=== PATIENT | female | born 1970 | race Caucasian/White ===

== ENCOUNTER 2024-12-10 13:23 | Inpatient (IN) | payer OTHER ==
[~2024-12-10] VITALS: Ht 165.1 cm; Wt 90.7 kg
[2024-12-10] MEDS: SODIUM CHLORIDE 0.9% 1000ML 1,000 ML IV STA (14:24)
[2024-12-10 14:32] LABS: BASOPHILS % 0.6 % (0.0-1.0); EOSINOPHILS # (AUTO) 0.2 (0.0-0.4); EOSINOPHILS % 2.8 % (0.0-6.0); HEMOGLOBIN 10.5 g/dL (12.0-16.0); LYMPHOCYTES # (AUTO) 1.4 (1.0-3.2); LYMPHOCYTES % 20.6 % (18.0-39.1); MEAN CORPUSCULAR HEMOGLOBIN 28.8 pg (28-32); MEAN CORPUSCULAR HGB CONC 31.8 g/dL (31-35); MEAN CORPUSCULAR VOLUME 90.7 fL (81-99); MONOCYTES # (AUTO) 0.4 (0.2-0.8); MONOCYTES % 5.6 % (4.4-11.3); NEUTROPHILS # (AUTO) 4.8 (2.1-6.9); NEUTROPHILS % 70.3 % (38.7-80.0); PLATELET COUNT 359 x10e3/uL (140-360); RED BLOOD COUNT 3.64 x10e6/uL (3.6-5.1); RED CELL DISTRIBUTION WIDTH 13.7 % (11.7-14.4); WHITE BLOOD COUNT 6.83 x10e3/uL (4.8-10.8)
[2024-12-10] MEDS: VANCOMYCIN 1.25GM/250 ML (PEG) 250 ML IV ONE (14:42)
[2024-12-10 14:44] LABS: INR 0.9
[2024-12-10 14:45] LABS: PARTIAL THROMBOPLASTIN TIME 30.6 seconds (23.8-35.5)
[2024-12-10 14:54] LABS: ALBUMIN 3.1 g/dL (3.5-5.0); ALBUMIN/GLOBULIN RATIO 0.8 (0.8-2.0); ANION GAP 14.4 mmol/L (8-16); BILIRUBIN,TOTAL 0.4 mg/dL (0.2-1.2); CALCIUM 9.1 mg/dL (8.4-10.2); CREATININE, SERUM 0.97 mg/dL (0.57-1.11); MAGNESIUM 2.1 MG/DL (1.3-2.1); POTASSIUM 4.4 mmol/L (3.5-5.1)
[2024-12-10 16:12] VITALS: PULSE 76; RESP 16; TEMP 98.5
[2024-12-10 16:55] VITALS: BP 152/85; PULSE 85; RESP 18; TEMP 98.3; O2SAT 100
[2024-12-10 17:10] VITALS: BP 152/85; PULSE 85; RESP 18; TEMP 98.3; O2SAT 100
[2024-12-10] MEDS ORDERED: SUBOXONE 8 MG-1 EAC2 SL (17:31)
[2024-12-10] MEDS: ENOXAPARIN SODIUM INJ 100 MG/ML SYR SC ONE (17:38)
[2024-12-10] MEDS: SODIUM CHLORIDE 0.9% 1000ML 1,000 ML IV SCH (17:39)
[2024-12-10 20:00] VITALS: BP 143/73; PULSE 49; RESP 20; TEMP 98.3; O2SAT 98
[2024-12-10 21:00] VITALS: BP 143/73; PULSE 49; RESP 20; TEMP 98.3; O2SAT 98
[2024-12-11] VITALS (7 sets, daily range): BP systolic 123–141; BP diastolic 69–73; PULSE 63–79; RESP 17–20; TEMP 97.9–98.4; O2SAT 96–99
[2024-12-11] MEDS: Vancomycin IV 1 GM in SODIUM CHLORIDE 0.9% 250ML 250 ML IV SCH (03:54)
[2024-12-11] MEDS: ONDANSETRON HCL INJ 2MG/ML 2ML 2 MG/ML VIAL IV PRN (05:09)
[2024-12-11] MEDS: Morphine 4mg INJECTION 4 MG/ML INJ IV PRN (05:09)
[2024-12-11 05:54] LABS: BASOPHILS # (AUTO) 0.1 (0.0-0.1); BASOPHILS % 0.9 % (0.0-1.0); EOSINOPHILS # (AUTO) 0.2 (0.0-0.4); EOSINOPHILS % 4.1 % (0.0-6.0); HEMATOCRIT 31.9 % (34.2-44.1); HEMOGLOBIN 10.1 g/dL (12.0-16.0); LYMPHOCYTES # (AUTO) 1.7 (1.0-3.2); LYMPHOCYTES % 29.9 % (18.0-39.1); MEAN CORPUSCULAR HEMOGLOBIN 28.9 pg (28-32); MEAN CORPUSCULAR HGB CONC 31.7 g/dL (31-35); MEAN CORPUSCULAR VOLUME 91.1 fL (81-99); MONOCYTES # (AUTO) 0.4 (0.2-0.8); MONOCYTES % 6.6 % (4.4-11.3); NEUTROPHILS # (AUTO) 3.3 (2.1-6.9); NEUTROPHILS % 58.3 % (38.7-80.0); PLATELET COUNT 350 x10e3/uL (140-360); RED CELL DISTRIBUTION WIDTH 13.9 % (11.7-14.4); WHITE BLOOD COUNT 5.62 x10e3/uL (4.8-10.8)
[2024-12-11 06:40] LABS: ALBUMIN 2.6 g/dL (3.5-5.0); ALBUMIN/GLOBULIN RATIO 0.7 (0.8-2.0); ANION GAP 13.4 mmol/L (8-16); BILIRUBIN,TOTAL 0.5 mg/dL (0.2-1.2); CALCIUM 8.6 mg/dL (8.4-10.2); CREATININE, SERUM 0.94 mg/dL (0.57-1.11); POTASSIUM 4.4 mmol/L (3.5-5.1); TOTAL PROTEIN 6.1 g/dL (6.5-8.1)
[2024-12-11] MEDS: FUROSEMIDE INJ 10 MG/ML 4 ML VIAL IV SCH (09:53)
[2024-12-11] MEDS: POTASSIUM CHLORIDE 10MEQ EA PO SCH (09:54)
[2024-12-11] MEDS: [UNRECOGNIZED DRUG - OTHER] SL SCH (17:00)
[2024-12-11] MEDS: NALOXONE HCL SL SCH (17:00)
[2024-12-11] MEDS: BUPRENORPHINE HCL SL SCH (17:00)
[2024-12-11] MEDS: ENOXAPARIN SOD INJ 40 MG/0.4 ML SYR SC SCH (17:16)
[2024-12-12] VITALS (9 sets, daily range): BP systolic 116–136; BP diastolic 59–80; PULSE 64–77; RESP 18–20; TEMP 98–98.4; O2SAT 95–100
[2024-12-12 06:00] LABS: ANION GAP 13.3 mmol/L (8-16); CALCIUM 8.9 mg/dL (8.4-10.2); CREATININE, SERUM 0.99 mg/dL (0.57-1.11); POTASSIUM 4.3 mmol/L (3.5-5.1)
[2024-12-12] MEDS: FUROSEMIDE INJ 10 MG/ML 4 ML VIAL IV SCH (09:09)
[2024-12-13] VITALS (9 sets, daily range): BP systolic 128–150; BP diastolic 62–93; PULSE 65–85; RESP 18–20; TEMP 98.1–98.5; O2SAT 95–100
[2024-12-13 05:42] LABS: ANION GAP 17.2 mmol/L (8-16); CALCIUM 9.5 mg/dL (8.4-10.2); CREATININE, SERUM 1.16 mg/dL (0.57-1.11); POTASSIUM 4.2 mmol/L (3.5-5.1)
[2024-12-13] MEDS: DAPTOMYCIN 500mg 10ML 500 MG in SODIUM CHLORIDE 0.9% 100 ML IV SCH (16:38)
[2024-12-13] MEDS: SODIUM CHLORIDE 0.9% 1000ML 1,000 ML IV SCH (16:40)
[2024-12-13 16:46] LABS: ANION GAP 18.1 mmol/L (8-16); CALCIUM 10.5 mg/dL (8.4-10.2); CREATININE, SERUM 1.13 mg/dL (0.57-1.11); POTASSIUM 5.1 mmol/L (3.5-5.1)
[2024-12-14 03:30] VITALS: BP 120/94; PULSE 82; RESP 18; TEMP 98.1; O2SAT 97
[2024-12-14 08:00] VITALS: BP 122/75; PULSE 84; RESP 18; TEMP 97.8; O2SAT 97
[2024-12-14 11:36] VITALS: BP 126/73; PULSE 83; RESP 20; TEMP 97.8; O2SAT 100
[2024-12-14 16:00] VITALS: BP 140/81; PULSE 66; RESP 18; TEMP 97.8; O2SAT 100
== END 2024-12-14 17:57 | disposition home health service (06) | DRG 603 ==
LOC: ER 13:52 → ERHOLD 15:18 → MED/SURG 16:18
PROVIDERS: ADMIT Internal Medicine; ATTEND Internal Medicine
DX: L03.116 Cellulitis of left lower limb (principal); N17.9 Acute kidney failure, unspecified; R60.0 Localized edema; E66.9 Obesity, unspecified; Z68.33 Body mass index [BMI] 33.0-33.9, adult; Z86.711 Personal history of pulmonary embolism; Z86.718 Personal history of other venous thrombosis and embolism; F17.200 Nicotine dependence, unspecified, uncomplicated
CPT/HCPCS: 36415; 80048; 80053; 80202; 83735; 85025; 85610; 85730; 87040; 93971; 99252; 99284; J1650; J1938; J2270; J2405; J2543; J7030; J7050

== ENCOUNTER 2024-12-21 16:34 | Emergency (ER) | payer OTHER ==
[~2024-12-21] VITALS: Ht 165.1 cm; Wt 90.7 kg
[~2024-12-21 16:34] MED LIST: SUBOXONE 8 MG-1 EAC2 SL
[2024-12-21 20:04] LABS: BASOPHILS % 0.9 % (0.0-1.0); EOSINOPHILS % 5.0 % (0.0-6.0); LYMPHOCYTES % 32.6 % (18.0-39.1); MONOCYTES % 6.0 % (4.4-11.3); NEUTROPHILS % 55.3 % (38.7-80.0); RED CELL DISTRIBUTION WIDTH 14.2 % (11.7-14.4)
[2024-12-21 20:26] LABS: EST GLOMERULAR FILTRATION RATE 63.0 ML/MIN (>=60)
[2024-12-21 21:12] VITALS: PULSE 70; RESP 18; TEMP 98.1; O2SAT 100
== END 2024-12-21 21:30 | disposition home or self-care (01) ==
LOC: ER 17:55
DX: Z45.2 Encounter for adjustment and management of vascular access device (principal); Z86.711 Personal history of pulmonary embolism; F17.210 Nicotine dependence, cigarettes, uncomplicated
CPT/HCPCS: 36415; 80053; 85025; 99283; J2543

== ENCOUNTER 2025-01-28 19:34 | Emergency (ER) | payer OTHER ==
[~2025-01-28] VITALS: Ht 165.1 cm; Wt 90.7 kg
[2025-01-28 19:58] VITALS: PULSE 93; RESP 18; TEMP 98.3; O2SAT 100
[2025-01-28] MEDS ORDERED: DOXYCYCLINE HY100 MG PO (20:17)
== END 2025-01-28 20:24 | disposition home or self-care (01) ==
LOC: ER 20:16
DX: L03.116 Cellulitis of left lower limb (principal); Z86.711 Personal history of pulmonary embolism; F17.210 Nicotine dependence, cigarettes, uncomplicated
CPT/HCPCS: 99283

== ENCOUNTER 2025-02-16 15:35 | Emergency (ER) | payer OTHER ==
[~2025-02-16] VITALS: Ht 165.1 cm; Wt 90.7 kg
[~2025-02-16 15:35] MED LIST changes: +DOXYCYCLINE HY100 MG PO
[2025-02-16 19:20] VITALS: PULSE 89; RESP 18; TEMP 97.7
[2025-02-16 19:26] VITALS: BP 164/88; PULSE 89; RESP 18; TEMP 97.7; O2SAT 100
== END 2025-02-16 19:30 | disposition home or self-care (01) ==
LOC: ER 19:06
DX: L03.116 Cellulitis of left lower limb (principal); Z86.718 Personal history of other venous thrombosis and embolism
CPT/HCPCS: 99282